=== PATIENT | male | born 1960 | race Caucasian/White ===

== ENCOUNTER 2024-12-30 07:46 | Observation (INO) ==
--- NOTE | 2024-12-30 08:09 | Emergency Department Note ---
Past Med/Surg History Problem List Social History Smoking Status: Current every day smoker Feels Safe at Home: Yes Allergies Allergies Allergy/AdvReac Type Severity Reaction Status Date / Time No Known Allergies Allergy Unverified 12/30/24 07:54 Results & Data (ED) Vital Signs Vital Signs - 24 hr 12/30/24 07:53 12/30/24 07:56 Temperature 36.8 C Temperature Source Oral Pulse Rate 86 Respiratory Rate 18 Respiratory Effort / Characteristics Non-Labored Respiratory Depth Normal Blood Pressure 97/63 L Blood Pressure Mean 74 Blood Pressure Position Sitting Pulse Oximetry 98 Oxygen Delivery Method Room Air Sepsis Recent Fever Within 48 Hours No Sepsis New/Unexplained Change in Mental Status No Sepsis Action Taken by Nursing No Action Required Discharge Plan Visit Data Chief Complaint: Arm Pain Stated Complaint: BROKEN R ARM ED Provider: German Farris ED Midlevel Provider: Charly Molina Forms Stand Alone Forms: [facility] Referrals Referrals: PCP,NO [Primary Care Provider] -
--- NOTE | 2024-12-30 08:11 | Emergency Department Note ---
History of Present Illness General Chief complaint: Arm Pain Stated complaint: BROKEN R ARM Time Seen by Provider: 12/30/24 07:59 History of Present Illness Maximum Pain Intensity: 10 This is a 64-year-old right-hand dominant male who presents to the emergency department via private vehicle with complaints of "dog bites, right wrist deformity". The patient is right-hand dominant. He believes his tetanus vaccine is up-to-date but is unsure. He notes about 45 minutes prior to arrival he got between his dogs that bit him on the right wrist, he then fell to the ground striking his right hand/wrist. He notes right wrist deformity and multiple bites to the right wrist region. He denies any known drug allergies. He believes he may have cancer lung/liver but is not entirely sure. He notes dogs vaccines are NOT up-to-date. Patient notes they are in house dogs, they do not stay outside. He denies concern for rabies. He notes dogs are still alive and can quarantine for 10 days. He denies striking the head or loss of consciousness. No headache or neck pain. No chest pain or abdominal pain. No back pain. He denies any bites beyond the upper extremities. He denies any other areas of pain beyond the right wrist. Patient denies any anticoagulant use. He notes he does not currently have a PCP. Home Medications Medication Instructions Recorded Confirmed Type albuterol sulfate 90 mcg/actuation 1 puff inhalation DIRECTED 12/30/24 12/30/24 History aerosol inhaler umeclidinium 62.5 mcg-vilanterol 1 inh inhalation DIRECTED 12/30/24 12/30/24 History 25 mcg/actuation powdr for inhalation (Anoro Ellipta) Allergies Allergy/AdvReac Type Severity Reaction Status Date / Time No Known Allergies Allergy Verified 12/30/24 12:10 Past Med/Surg History Problem List (Updated 12/30/24 @ 21:35 by Charly Molina PA-C) Transaminitis (Acute) Heavy alcohol consumption Dog bite, hand (Acute) History of opioid abuse COPD (chronic obstructive pulmonary disease) Open fracture of distal ulna (Acute) Open fracture of distal end of radius (Acute) Median nerve injury Medical History History of herniated intervertebral disc History of fracture of right ankle History of COPD Social History Smoking Status: Current every day smoker Tobacco Type: Cigarettes Second Hand Exposure: Yes; Do You Dip or Chew Tobacco: No; Tobacco Cessation Education Requested by Patient: No Hx Alcohol Use: Yes (reports past use of alcohol) Hx Substance Use: Yes (past history, no recent use) Last Used Substance: Unknown Last Used Substance Other:: patient states "years ago" use of opiates. no recent usage Preferred Language: Mohawk Communication Ability: Effective Instrumentation Engineer Required: Yes Beliefs That Will Affect Care: None Current Living Situation: Other Current Living Situation Comment: lives in house with dtr who works away, friends will be staying to help Other Information That Helps Us Care for You: No Feels Safe at Home: Yes Safety Concerns: Feels Safe At This Time Assistive Devices: Glasses Review of Systems A total of 10 systems reviewed and were otherwise negative Physical Exam Vital Signs Vital Signs - 24 hr 12/30/24 07:53 12/30/24 07:56 12/30/24 08:15 Temperature 36.8 C Temperature Source Oral Pulse Rate 86 Pulse Rate [Apical] Respiratory Rate 18 Respiratory Effort / Characteristics Non-Labored Respiratory Depth Normal Blood Pressure 97/63 L Blood Pressure [Right Arm] Blood Pressure Mean 74 Blood Pressure Mean [Right Arm] Blood Pressure Position Sitting Pulse Oximetry 98 96 Oxygen Delivery Method Room Air Room Air Sepsis Recent Fever Within 48 Hours No Sepsis New/Unexplained Change in Mental Status No Sepsis Action Taken by Nursing No Action Required 12/30/24 08:18 12/30/24 08:35 12/30/24 10:48 Temperature Temperature Source Pulse Rate 87 Pulse Rate [Apical] 87 90 Respiratory Rate 20 20 Respiratory Effort / Characteristics Non-Labored Respiratory Depth Normal Normal Blood Pressure Blood Pressure [Right Arm] 128/88 150/98 H Blood Pressure Mean Blood Pressure Mean [Right Arm] 101 115 Blood Pressure Position Pulse Oximetry 94 98 Oxygen Delivery Method Room Air Room Air Sepsis Recent Fever Within 48 Hours Sepsis New/Unexplained Change in Mental Status Sepsis Action Taken by Nursing VITAL SIGNS - Vital signs and nursing notes were reviewed. Stable and afebrile. GENERAL -64-year-old male appearing his stated age who is in no acute distress. Communicates well with provider and answers questions appropriately. SKIN -obvious deformity to the right wrist region with several open wounds/puncture wounds noted consistent with dog bites HEAD - NC/AT. EYES - PERRL with EOMI bilaterally. Sclera anicteric. No hyphema. No subconjunctival hemorrhage. NECK - Neck with FROM. No nuchal rigidity. LUNGS - Chest wall symmetric without accessory muscle use, intercostals retractions, or central cyanosis. Normal vesicular breath sounds CTA B/L. No wheezes, rales, or rhonchi appreciated. CARDIAC - RRR EXTREMITIES - No clubbing or peripheral cyanosis. Skin as above. Obvious deformity to the right wrist region with multiple open wounds/puncture wounds noted. +5/5 strength noted in UE/LE bilaterally. R radial pulse WNL. Right upper extremity appropriately warm and well-perfused. Cap refill of all digits of the right hand within normal limits NEUROLOGIC - Cranial nerves II through XII grossly intact. Sensory intact to light touch throughout the upper extremities without deficit. PSYCH -alert, oriented and pleasant on exam Course Administered Medications Lactated Ringer's (Lr) 1,000 mls @ 15 mls/hr IV .Q24H JEANNE Stop: 12/31/24 12:14 Last Infusion: 12/30/24 12:44 Dose: Infused Documented By: Admin: 12/30/24 12:14 Dose: 15 mls/hr Documented By: MARLENE Ampicillin Sodium/Sulbactam Sodium (Unasyn) 3,000 mg in 100 mls @ 200 mls/hr IV Q6H JEANNE Stop: 02/10/25 19:29 Last Infusion: 12/30/24 21:02 Dose: Infused Documented By: Admin: 12/30/24 20:23 Dose: 200 mls/hr Documented By: PARAG Nicotine (Nicotine 7 Mg/24 Hr Tdsy) 1 patch TD QAM JEANNE Stop: 01/29/25 19:59 Last Admin: 12/30/24 20:23 Dose: 1 patch Documented By: PARAG Discontinued Medications Albuterol (Albut/Ipratrop 3mg/0.5mg Neb 3 Ml Vial) 3 ml NEB NOW STA; Protocol Stop: 12/30/24 12:31 Last Admin: 12/30/24 18:06 Dose: Not Given Documented By: EMANUEL Diphtheria/Pertussis/Tetanus Vacc (Diphther/Tetan/Pertus Vaccine (Tdap, Adol/Adult) 0.5ml) 0.5 ml IM .ONCE ONE Stop: 12/30/24 08:27 Last Admin: 12/30/24 08:37 Dose: 0.5 ml Documented By: THEO Fentanyl Citrate (Fentanyl Citrate Pf 100 Mcg/2 Ml Vial) 50 mcg IV NOW STA Stop: 12/30/24 08:14 Last Admin: 12/30/24 08:27 Dose: 50 mcg Documented By: THEO Fentanyl Citrate (Fentanyl Citrate Pf 100 Mcg/2 Ml Vial) 25 mcg IV NOW STA Stop: 12/30/24 09:05 Last Admin: 12/30/24 09:12 Dose: 25 mcg Documented By: THEO Fentanyl Citrate (Fentanyl Citrate Pf 100 Mcg/2 Ml Vial) 25 mcg IV NOW STA Stop: 12/30/24 09:52 Last Admin: 12/30/24 10:05 Dose: 25 mcg Documented By: THEO Fentanyl Citrate (Fentanyl Citrate Pf 100 Mcg/2 Ml Vial) 25 mcg IV NOW STA Stop: 12/30/24 10:59 Last Admin: 12/30/24 11:06 Dose: 25 mcg Documented By: THEO Ampicillin Sodium/Sulbactam Sodium (Unasyn) 3,000 mg in 100 mls @ 200 mls/hr IV NOW STA Stop: 12/30/24 08:37 Last Infusion: 12/30/24 09:08 Dose: Infused Documented By: Admin: 12/30/24 08:26 Dose: 200 mls/hr Documented By: THEO Tranexamic Acid (Tranexamic Acid / 0.7% Nacl) 1,000 mg in 100 mls @ 600 mls/hr IV PREOP ONE Stop: 12/30/24 11:56 Last Infusion: 12/30/24 18:07 Dose: Infused Documented By: Admin: 12/30/24 13:25 Dose: 600 mls/hr Documented By: [id number] Ampicillin Sodium/Sulbactam Sodium (Unasyn) 3,000 mg in 100 mls @ 200 mls/hr IV Q6H JEANNE Stop: 02/10/25 14:29 Last Admin: 12/30/24 18:06 Dose: Not Given Documented By: EMANUEL Ondansetron HCl (Ondansetron Inj 2 Mg/Ml 2 Ml Vial) 4 mg IV NOW STA Stop: 12/30/24 08:14 Last Admin: 12/30/24 08:27 Dose: 4 mg Documented By: THEO Medical Decision Making Laboratory Data 12/30/24 08:07 12/30/24 08:07 Lab Results 12/30/24 12/30/24 12/30/24 Range/Units 08:07 09:07 09:32 WBC 5.28 (4.8-10.8) K/ul RBC 3.95 L (4.70-6.10) M/uL Hgb 12.5 L (14.0-18.0) g/dl Hct 37.6 L (42.0-52.0) % MCV 95.2 (80.0-100.0) fL MCH 31.6 (25.0-34.0) pg MCHC 33.2 (32.0-36.0) g/dL RDW Std Deviation 49.6 H (36.4-46.3) fL RDW Coeff of Surendra 14.1 (11.5-14.5) % Plt Count 88 L (130-400) K/uL MPV 13.0 H (9.4-12.4) fL Immature Gran % (Auto) 0.2 % Neut % (Auto) 50.5 % Lymph % (Auto) 32.4 % Vance % (Auto) 9.8 % Eos % (Auto) 6.3 % Baso % (Auto) 0.8 % Neut # (Auto) 2.67 (1.40-6.50) K/uL Lymph # (Auto) 1.71 (1.20-3.40) K/uL Vance # (Auto) 0.52 (0.11-0.59) K/uL Eos # (Auto) 0.33 (0.00-0.50) K/uL Baso # (Auto) 0.04 (0.00-0.20) K/uL Immature Gran # (Auto) 0.01 (0.01-0.20) K/uL Platelet Estimate Decreased L (Normal) PT 11.9 (9.0-12.0) Seconds INR 1.1 (0.9-1.1) APTT 27 (21-31) Seconds PTT Ratio 1.0 Sodium 137 (136-145) mmol/L Potassium 3.6 (3.5-5.1) mmol/L Chloride 103 (98-107) mmol/L Carbon Dioxide 23 (21-32) mmol/L Anion Gap 11 (3-11) BUN 11 (6-23) mg/dl Creatinine 0.73 (0.6-1.4) mg/dl Est Cr Clr Drug Dosing 77.2 ml/min eGFR 101.60 BUN/Creatinine Ratio 15.1 (10-20) Glucose 229 H (70-99(Fasting)) mg/dl Calcium 8.8 (8.6-10.3) mg/dl Total Bilirubin 0.7 (0.2-1.0) mg/dl AST 117 H (13-39) U/L ALT 74 H (7-52) U/L Alkaline Phosphatase 130 H (34-104) U/L Total Protein 7.2 (6.0-8.3) gm/dl Albumin 3.1 L (3.4-5.0) gm/dl Globulin 4.1 H (2.5-4.0) gm/dl Albumin/Globulin Ratio 0.8 L (0.9-2) Urine Color Brown Urine Appearance Cloudy A (Clear) Urine pH 6.0 (4.5-7.5) Ur Specific Sterling 1.025 (1.000-1.030) Urine Protein 2+ H (Negative) Urine Glucose (UA) Negative (Negative) Urine Ketones Negative (Negative) Urine Blood 3+ H (Negative) Urine Nitrite Negative (Negative) Urine Bilirubin Negative (Negative) Urine Urobilinogen Negative (Negative) Ur Leukocyte Esterase Negative (Negative) Urine RBC >20 H (0-2) /hpf Urine WBC 11-20 H (0-5) /hpf Ur Epithelial Cells 0-2 (0-2) /hpf Urine Bacteria None Seen (None Seen) Ethyl Alcohol mg/dL < 10.0 (<10.0) mg/dl Imaging Data Radiologist's Impression: Hand X-Ray 12/30/24 11:28 XR hand LT min 3V routine CLINICAL HISTORY: L hand fingers dog bites COMPARISON: None FINDINGS: Evaluation of the left fifth finger is mildly compromised given monitoring device. No acute fractures within the left hand are identified. There are no unexpected radiopaque foreign bodies. A few well-corticated ossicles along the ulnar styloid are chronic. 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 IMPRESSION: No acute fracture or dislocation within the left hand. ACT 112: Negative or not required by law. Electronically signed by: Waldo Grimes M.D. 12/30/2024 11:59 AM XR hand RT min 3V routine, XR wrist RT min 3V routine, XR forearm RT 2V HISTORY: 64 years-old Male R wrist deformity, dog bites, fall acute right wrist pain status post fall COMPARISON: Wrist deformity grafts of same day TECHNIQUE: 2 views of the right hand with 2 views of the right forearm and 3 views of the right wrist FINDINGS: HAND: Limited exam secondary to positioning. Multifocal osteoarthritis, moderate within the first carpometacarpal joint. No definite acute fracture or dislocation. WRIST: No acute carpal bone fracture or dislocation. FOREARM: There is an acute open fracture deformity involving the distal radius which demonstrates apex lateral angulation with and volar displacement of 2.5 cm. The radiocarpal articulation is preserved. The distal radius extends through the soft tissues. Additional acute, comminuted and displaced fracture of the distal ulna with fracture fragment displaced over 2 cm the adjacent ulnar tissues. The ulnar styloid is also fractured. There is moderate soft tissue swelling with a considerable amount of subcutaneous emphysema and deep tissue air. IMPRESSION: 1. Acute open fracture deformity of the distal forearm with comminuted, displaced and angulated fractures of the distal radius and ulna. 2. Preserved radiocarpal articulation. 3. No acute carpal or hand fractures identified. 4. Soft tissue swelling with subcutaneous emphysema. ACT 112: Negative or not required by law. The above report was generated using voice recognition software. It may contain grammatical, syntax or spelling errors. Electronically signed by: Dain Knox M.D. 12/30/2024 8:46 AM MDM Narrative Patient was seen and evaluated as above in room B09. Review was performed of triage nursing notes and vital signs. After obtaining a thorough history and physical examination the above work up was performed. Patient presents to us today for evaluation of multiple dog bites to the right wrist/upper extremity area with deformity to the right wrist. Patient notes that he was trying to separate his 2 pit bulls and in doing so sustained multiple bites and then also fell to the ground injuring his right wrist. He denies striking head or loss of consciousness. GCS 15. No headache or neck pain. No chest pain or abdominal pain. No back pain. No neurovascular deficits at this time. Options of care were discussed with the patient. IV access was immediately established. Tetanus vaccine was updated as it appeared to be out of date per review of the EMR/[facility] and patient was given prophylactic IV antibiotics noting concern for potential open fracture with dog bites. IV Unasyn was chosen for Pasteurella multocida coverage. Patient was medicated here with IV fentanyl for pain, Zofran for nausea. I did cleanse the wounds with sterile saline and wrapped them with sterile saline soaked sterile 4 x 4's followed by Lloyd. I also was able to identify some small wounds to the left hand/thumb region. Same type of dressings were applied. With the patient having a significantly displaced fracture that may be open, I did have staff page orthopedics. Labs reveal no leukocytosis. There is minor anemia with hemoglobin of 12.5. Platelet count is decreased. Coags are normal. No evidence of kidney failure. Mild transaminitis noted. Normal T. bili. Urine does reveal some protein, red blood cells white blood cells without bacteria. No signs of head trauma on examination. In fact, injuries appear to be isolated to the right hand/wrist region and left thumb. I also reviewed rabies with the patient. He denies any concern for rabies at this time. He notes that both of the dogs live with him and have been with him for some time now. There have been no changes in behavior. Patient notes the dogs live inside with him. Friend at bedside notes the dogs are at their baseline without signs of illness. They will quarantine and monitor the dogs x 10 days to ensure they are still alive. We will hold off on rabies series at this time. [phone] staff did call back, they will relay the information to Dr. Meehan [phone]-Dr. Meehan did call back. He recommended transfer. Splint in current position. We then began calling [facility] however I updated the patient on this recommendation and he refused [facility]. He specifically requested [facility]. [id number]-[facility] one call called back. They will connect with trauma. I spoke with with trauma at [facility]. They did note this being isolated, orthopedics would be primary service, therefore they recommend discussing with orthopedics at their facility. 1000- I spoke Dr. Aguirre, [facility] orthopedics. Recommends reduction, then they will call back with acceptance. [phone]- Dr. Meehan updated that receiving facility recommend reduction. He came to bedside. Ultimate plan was to take the patient to the OR. Please refer to the documentation regarding his stay. Patient did note numbness in the digits/hand but still able to appreciate light touch. Case was discussed with the attending physician. GCS: 15 In the evaluation and treatment of this patient the following differential diagnoses were entertained: Fracture, dislocation, subluxation, contusion, sprain, strain, among others. Impression & Plan Open fracture of distal end of radius, Transaminitis, Open fracture of distal ulna, Dog bite, hand Discharge Plan Visit Data Chief Complaint: Arm Pain Stated Complaint: BROKEN R ARM ED Provider: German Farris ED Midlevel Provider: Charly Molina Discharge Problem: Open fracture of distal end of radius, Transaminitis, Open fracture of distal ulna, Dog bite, hand Patient Disposition: Being Evaluated by Surgeon Condition: Good Discharge Instructions Interventions: ED Discharge Assessment Last Done: 12/30/24 11:40
--- NOTE | 2024-12-30 08:13 | Emergency Department Note ---
ED Visit Note ED Physician Supervisory Note & Attestation: I was consulted by the Advanced Practice Provider, Charly BARBER. I personally made/approved the management plan and take responsibility for the patient management. I performed a substantive portion of the visit. This includes the aspects of: Pit bull dog bite right wrist. Deformity. Occured just prior to arrival. Unknown tetanus vaccination status. Unknown rabies vaccination status of dogs. Patient without past medical history nor medications, though admits possible cancer. Evaluation: bedside evaluation by me. Ulnar dislocation with significant deformity right wrist. Multiple lacerations/puncture wounds surrounding the area. Patient is cachectic and chronically unwell appearing but denies any daily medications. Patient on my evaluation denies. He does still have blood flow to the hand. X-rays confirm significant fracture with displacement. After discussion with orthopedics here as well as at [facility] trauma center in [place]. After evaluation and discussion orthopedics here decided to take patient to the OR for further management. Imaging: X-ray of the right wrist as per my interpretation shows significant fracture of the ulnar and radius with displacement of the wrist. German Farris MD
[2024-12-30] MEDS: AMPICILLIN/SULBACTAM SOD 3,000 MG/100 ML BAG IV STA (08:26)
[2024-12-30] MEDS: ONDANSETRON INJ 2 MG/ML 2 ML VIAL IV STA (08:27)
[2024-12-30] MEDS: fentaNYL citrate PF 100 MCG/2 ML VIAL IV STA ×4 (08:27→11:06)
[2024-12-30] MEDS: DIPHTHER/TETAN/PERTUS Vaccine (Tdap, Adol/Adult) 0.5mL IM ONE (08:37)
[2024-12-30 08:43] LABS: Hematocrit (blood only) 37.6 % (42.0-52.0); Hemoglobin 12.5 g/dl (14.0-18.0); Mean Corpuscular Hemoglobin 31.6 pg (25.0-34.0); Mean Corpuscular Hgb Conc 33.2 g/dL (32.0-36.0); Mean Corpuscular Volume 95.2 fL (80.0-100.0); RDW Coefficient of Variation 14.1 % (11.5-14.5); RDW Standard Deviation 49.6 fL (36.4-46.3); Red Blood Count 3.95 M/uL (4.70-6.10); White Blood Count 5.28 K/ul (4.8-10.8)
--- NOTE | 2024-12-30 08:49 | XRay Report ---
XR hand RT min 3V routine, XR wrist RT min 3V routine, XR forearm RT 2V HISTORY: 64 years-old Male R wrist deformity, dog bites, fall acute right wrist pain status post fal l COMPARISON: Wrist deformity grafts of same day TECHNIQUE: 2 views of the right hand with 2 views of the right forearm and 3 views of the right wrist FINDINGS: HAND: Limited exam secondary to positioning. Multifocal osteoarthritis, moderate within the first car pometacarpal joint. No definite acute fracture or dislocation. WRIST: No acute carpal bone fracture or dislocation. FOREARM: There is an acute open fracture deformity involving the distal radius which demonstrates ape x lateral angulation with and volar displacement of 2.5 cm. The radiocarpal articulation is preserved . The distal radius extends through the soft tissues. Additional acute, comminuted and displaced frac ture of the distal ulna with fracture fragment displaced over 2 cm the adjacent ulnar tissues. The ul david styloid is also fractured. There is moderate soft tissue swelling with a considerable amount of s ubcutaneous emphysema and deep tissue air. IMPRESSION: 1. Acute open fracture deformity of the distal forearm with comminuted, displaced and angulated fract ures of the distal radius and ulna. 2. Preserved radiocarpal articulation. 3. No acute carpal or hand fractures identified. 4. Soft tissue swelling with subcutaneous emphysema. ACT 112: Negative or not required by law. The above report was generated using voice recognition software. It may contain grammatical, syntax o r spelling errors. Electronically signed by: Dain Knox M.D. 12/30/2024 8:46 AM
[2024-12-30 08:52] LABS: Albumin Globulin Ratio 0.8 (0.9-2); Albumin Level 3.1 gm/dl (3.4-5.0); BUN Creatinine Ratio 15.1 (10-20); Bilirubin,Total 0.7 mg/dl (0.2-1.0); Calcium 8.8 mg/dl (8.6-10.3); Creatinine Clr Calc Pharmacy 77.2 ml/min; Globulin 4.1 gm/dl (2.5-4.0); Potassium 3.6 mmol/L (3.5-5.1); Total Protein 7.2 gm/dl (6.0-8.3)
[2024-12-30 08:54] LABS: Basophils # (auto) 0.04 K/uL (0.00-0.20); Basophils % (auto) 0.8 %; Eosinophils # (auto) 0.33 K/uL (0.00-0.50); Eosinophils % (auto) 6.3 %; Immature Granulocytes # (auto) 0.01 K/uL (0.01-0.20); Immature Granulocytes % (auto) 0.2 %; Lymphocytes # (auto) 1.71 K/uL (1.20-3.40); Lymphocytes % (auto) 32.4 %; Monocytes # (auto) 0.52 K/uL (0.11-0.59); Monocytes % (auto) 9.8 %; Neutrophils # (auto) 2.67 K/uL (1.40-6.50); Neutrophils % (auto) 50.5 %; Platelet Count 88 K/uL (130-400); Platelet Estimate Decreased (Normal)
[2024-12-30 09:01] LABS: INR 1.1 (0.9-1.1); Partial Thromboplastin Time 27 Seconds (21-31); Prothrombin Time 11.9 Seconds (9.0-12.0)
--- NOTE | 2024-12-30 11:27 | Orthopedic Consultation ---
Date of Consultation December 30, 2024 Assessment & Plan (1) Median nerve injury: I discussed with the patient that his median nerve is injured, this is likely a stretch injury given the deformity at the fracture site, however it is possible he could have additional injury to the nerve as well. I discussed the unstable nature of his fractures as well as the complex nature of the distal ulna in particular. When I initially spoke to the emergency room about this patient I recommended transfer to a facility with a hand surgeon as I am not hand surgeon trained due to the complex nature of this injury. Patient declined transfer to [facility]. He requested [facility]. I talked to the orthopedic trauma surgeon at [facility] who is not a hand surgeon. He did not feel that transfer was appropriate and thought the patient should have surgery done here. I discussed this with the patient. I told him I could take him to the operating room and treat his distal radius fracture and washout his wounds. However there was a good chance he would need to have a secondary surgery perfor med by hand surgeon to deal with his distal ulna fracture. I offered him and the other alternative of us trying to continue to get him transferred to a facility with a hand surgeon. His preference was to have surgery here and deal with the consequences thereafter. Informed consent was signed by the patient. The surgical sites were marked. Will plan on washing out his left hand dog bite wounds at the same time. Will proceed to the operating room as soon as the room is available. He did have some tea this morning however given the open fracture and nerve injury it is an urgent/emergent case. He will need to stay in the hospital after surgery for antibiotics for minimum 24 hours. (2) Open fracture of distal end of radius: (3) Open fracture of distal ulna: (4) COPD (chronic obstructive pulmonary disease): (5) History of opioid abuse: (6) Dog bite, hand: History of Present Illness History of Present Illness Rk is a [id number] 64-year-old male who presented to the emergency department this morning. he says he was at home and his 2 pit bulls were fighting in his yard. He went to break up the fight and one of the dogs got his right arm in his mouth. He said he felt his wrist snapped when the dog had a hold of his arm. He also got bitten on his left hand. No deformity in the left hand. In the emergency room he received tetanus as well as antibiotics. X-rays were obtained. Orthopedics was consulted for evaluation and management. Patient reports that he has COPD and is smoked for many years. He says he has a lung nodule that is currently getting worked up. He denies any previous injuries to the right hand. He says he is retired. He reports that he has a numb and tingly feeling in his thumb index and long fingers. He says he used to take 6 Percocet per day but he says he is weaned off of those. Allergies Allergy/AdvReac Type Severity Reaction Status Date / Time No Known Allergies Allergy Unverified 12/30/24 07:54 Home Medications Medication Instructions Recorded Confirmed Type albuterol sulfate 90 mcg/actuation 1 puff inhalation DIRECTED 12/30/24 12/30/24 History aerosol inhaler umeclidinium 62.5 mcg-vilanterol 1 inh inhalation DIRECTED 12/30/24 12/30/24 History 25 mcg/actuation powdr for inhalation (Anoro Ellipta) Patient History Social History Smoking Status: Current every day smoker Feels Safe at Home: Yes Physical Exam Physical Exam: On exam he is resting comfortably in bed in no acute distress. Right upper extremity exam reveals deformity at the distal forearm with the hand and wrist going ulnar relative to the forearm. He has an a laceration over the volar aspect of the distal forearm measures approximately 4 cm in width. No obvious tendon lacerations seen on initial inspection of the wound. Did not see any cut nerve endings either. He has another laceration over the ulnar side of the distal forearm about 2 cm in length. Similarly quick inspection did not reveal any obvious tendons in the wound. Tendon exam reveals the patient to be able to fire his EPL and FPL. He fires his FDS and FDP to the index through pinky fingers. Unable to assess wrist extensors and wrist flexors secondary to the pain and deformity. He has decreased sensation to moving light touch in the median nerve distribution. Intact sensation to moving light touch in the ulnar and radial nerve distributions. His fingers feel well-perfused. Unable to assess pulses given the location of the fracture and deformity. Left hand shows the patient to have -4 small puncture wounds from the dog's teeth 3 on the left thumb and 1 at the tip of the fourth/ring finger. These are each less than 8 mm in maximum length. They are somewhat deep however due to the puncture nature of the injury. He had intact tendon function to the thumb and the ring finger with no gross deformity. X-rays are pending at the time of the evaluation of the left hand. Results & Data Vital Signs (Past 12 Hours) Vital Signs Temp Pulse Pulse Resp BP BP Pulse Ox 12/30/24 10:48 90 20 150/98 H 98 12/30/24 08:35 87 12/30/24 08:18 87 20 128/88 94 12/30/24 08:15 96 12/30/24 07:53 98.2 F 86 18 97/63 L 98 O2 Del Method 12/30/24 10:48 Room Air 12/30/24 08:35 12/30/24 08:18 Room Air 12/30/24 08:15 Room Air 12/30/24 07:53 Room Air Diagnostic Findings X-rays of the wrist and forearm are reviewed. These show a displaced extra- articular distal radius fracture with gas in the soft tissues consistent with an open injury. Ulna fracture appears to be a coronal split with the DRUJ portion of the distal ulna still attached to the radius fragment. The ulna fracture is comminuted.
[2024-12-30 11:44] LABS: Appearance Urine Cloudy (Clear); Bilirubin Urine Negative (Negative); Blood Urine 3+ (Negative); Color Urine Brown; Glucose Urine UA Negative (Negative); Ketones Urine Negative (Negative); Leukocyte Esterase Urine Negative (Negative); Nitrite Urine Negative (Negative); Protein Urine 2+ (Negative); Specific Gravity Urine 1.025 (1.000-1.030); Urobilinogen Urine Negative (Negative)
--- NOTE | 2024-12-30 11:51 | History & Physical Report ---
Date of Service December 30, 2024 Assessment & Plan (1) Dog bite, hand: (2) History of opioid abuse: (3) COPD (chronic obstructive pulmonary disease): (4) Open fracture of distal ulna: (5) Open fracture of distal end of radius: (6) Median nerve injury: (7) Heavy alcohol consumption: (8) Transaminitis: Plan 64 yo male PMHx COPD, opioid use disorder admitted with complex open fracture of the R wrist after trying to break up a dog fight and being bitten. #Dog Bite, Open Fracture of Radius and Ulna To OR for ORIF, likely will need second procedure at tertiary care center w/ hand surgeon Given Unasyn - continue Rec'd tetanus booster Pain management as needed #Heavy EtOH Use This is likely the culprit for transaminitis and thrombocytopenia AWSS at risk protocol ordered Trend labs Risk reduction vs EtOH treatment conversation needed prior to dc #Nicotine Use Offer nicotine replacement #COPD Continue Anoro and PRN albuterol FENGI: NPO for surgery, regular diet post-op Code status: full code DVT prophylaxis: SCDs Isolation: none Disposition: med/surg History of Present Illness Chief Complaint: 64 yo male PMHx COPD, opioid use disorder admitted with complex open fracture of the R wrist after trying to break up a dog fight and being bitten. Was also bitten on left hand without deformity. Is a group home smoker, history of taking 6 Percocet per day but weaned himself off of this. Admits to heavy EtOH use. States pain is reasonably controlled. Initially transfer was recommended but patient declined. Seen by ortho and readied for OR. ED Course: R hand/arm XRs reveal comminuted, displaced, angulated fractures of distal radius and ulna Labs reveal: transaminitis, thrombocytopenia, EtOH negative Tetanus booster given Rec'd Unasyn Primary Care Provider: NO PCP Allergies Allergy/AdvReac Type Severity Reaction Status Date / Time No Known Allergies Allergy Verified 12/30/24 12:10 Home Medications Medication Instructions Recorded Confirmed Type albuterol sulfate 90 mcg/actuation 1 puff inhalation DIRECTED 12/30/24 12/30/24 History aerosol inhaler umeclidinium 62.5 mcg-vilanterol 1 inh inhalation DIRECTED 12/30/24 12/30/24 History 25 mcg/actuation powdr for inhalation (Anoro Ellipta) Past Med/Surg History Problem List (Updated 12/30/24 @ 13:11 by Tarun Szymanski DO) Transaminitis Heavy alcohol consumption Dog bite, hand History of opioid abuse COPD (chronic obstructive pulmonary disease) Open fracture of distal ulna Open fracture of distal end of radius Median nerve injury Medical History History of herniated intervertebral disc History of fracture of right ankle History of COPD Social History Smoking Status: Current every day smoker Feels Safe at Home: Yes Review of Systems Review of Systems: reviewed, per HPI Physical Exam Physical Exam: Constitutional: gaunt, no acute distress HEENT: NCAT, no conjunctival injection CV: regular rhythm, extremities well-perfused, no LE edema Resp: decreased air movement, no significant wheeze, rales GI: nondistended MSK: no gross deformities appreciated Skin: warm, dry, no rash appreciated Neuro: alert, oriented, no focal neurologic deficit appreciated Results & Data Results & Data Vital Signs (Past 12 Hours) Vital Signs Temp Pulse Pulse Resp BP BP Pulse Ox 12/30/24 10:48 90 20 150/98 H 98 12/30/24 08:35 87 12/30/24 08:18 87 20 128/88 94 12/30/24 08:15 96 12/30/24 07:53 36.8 C 86 18 97/63 L 98 O2 Del Method 12/30/24 10:48 Room Air 12/30/24 08:35 12/30/24 08:18 Room Air 12/30/24 08:15 Room Air 12/30/24 07:53 Room Air Supervising Physician Co-Signing Physician Notes ATTESTATION I also saw the patient and confirmed capps portions of the history and exam. I agree with the impression and plan in the resident documentation, and as summarized below. [id number] 64-year-old male with acute open fracture with deformity of the distal right forearm with comminuted, displaced and angulated fractures of the distal radius and ulna suffered this morning while he was trying to separate his two pit bulls who were fighting. Also with open wound of left hand, but negative imaging. In the emergency room he received tetanus as well as antibiotics. Orthopedics was consulted for evaluation and management, and the patient is going to the OR this morning. Transfer to another facility was initially recommended, but the patient declined (see orthopedic consultation). Reported history of COPD and opioid use, although he weaned himself off previously. No PCP; no records available in EMR. EXAM 153/93, HR 98 Pain seems controlled at the time of my visit CV appropriately tachycardic, but regular Lungs decreased, prolonged exp phase Obvious deformity right wrist; left hand bandaged DATA Labs HgB 12.5 plt 88 glucose 229 AST 117, ALT 74 Imaging As noted above Micro urine culture pending IMPRESSION & PLAN Right wrist fracture Dog Bites, multiple Tobacco Abuse ETOH Abuse COPD Thrombocytopenia Elevated LFTS History of Opioid dependence Hyperglycemia Patient being readied for the OR Patient may need transfer for additional surgery Pain controlled at present time Suspect low platelet count and elevated LFTs secondary to ETOH, will discuss with patient post op Monitor for withdrawal; note negative ETOH on admission Encourage tobacco cessation Check A1c Additional per resident documentation Resident Activity Tracking Resident Involvement: Resident Care Provided Care Provided: Adult Hospital Medicine
[2024-12-30 11:55] LABS: Bacteria Urine None Seen (None Seen); Epithelial Cell Urine 0-2 /hpf (0-2); RBC Urine >20 /hpf (0-2)
--- NOTE | 2024-12-30 12:00 | XRay Report ---
XR hand LT min 3V routine CLINICAL HISTORY: L hand fingers dog bites COMPARISON: None FINDINGS: Evaluation of the left fifth finger is mildly compromised given monitoring device. No acut e fractures within the left hand are identified. There are no unexpected radiopaque foreign bodies. A few well-corticated ossicles along the ulnar styloid are chronic. 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 IMPRESSION: No acute fracture or dislocation within the left hand. ACT 112: Negative or not required by law. Electronically signed by: Waldo Grimes M.D. 12/30/2024 11:59 AM
[2024-12-30] MEDS: LACTATED RINGER'S 1,000 ML IV SCH (12:14)
[2024-12-30] MEDS ORDERED: fentaNYL citrate PF 100 MCG/2 ML VIAL ONE (12:19)
[2024-12-30] MEDS ORDERED: PROPOFOL IV EMULSION 10 MG/ML 20 ML VIAL IV ONE (12:19)
[2024-12-30] MEDS ORDERED: HYDROmorphone INJ 2 MG/ML SYR/VIAL IV PRN (12:29)
[2024-12-30] MEDS ORDERED: ONDANSETRON INJ 2 MG/ML 2 ML VIAL IV PRN ×2 (12:29→17:58)
[2024-12-30] MEDS ORDERED: ePHEDrine sulfate 50 MG/ML AMP IV PRN (12:29)
[2024-12-30] MEDS ORDERED: ATROPINE SULFATE 0.1 MG/ML 10ML SYR IV PRN (12:29)
[2024-12-30] MEDS ORDERED: fentaNYL citrate PF 100 MCG/2 ML VIAL IV PRN (12:29)
--- NOTE | 2024-12-30 12:33 | Anesthesiology Consultation ---
Date of Service December 30, 2024 Assessment & Plan ASA ASA3 Proposed Anesthesia Anesthesia Type: General Risk / Benefits Reviewed With: PT / POA / Parent / Guardian, Accepts Plan and Informed Consent Obtained History Surgery Operation Date: 12/30/24 11:10 Proposed Procedures p Right Distal Radius Fracture Open Reduction Internal Fixation and - Huy Meehan MD s Incision and Drainage Distal Radius - Huy Meehan MD Height/Weight Height: 5 ft 4 in Weight: 53.4 kg Allergies Allergy/AdvReac Type Severity Reaction Status Date / Time No Known Allergies Allergy Verified 12/30/24 12:10 Medications Home Medications Medication Instructions Recorded Confirmed Last Taken albuterol sulfate 90 mcg/actuation 1 puff inhalation DIRECTED 12/30/24 12/30/24 Unknown aerosol inhaler umeclidinium 62.5 mcg-vilanterol 1 inh inhalation DIRECTED 12/30/24 12/30/24 Unknown 25 mcg/actuation powdr for inhalation (Anoro Ellipta) Active Medications Generic Name Dose Route Start Last Admin Trade Name Wallaceq PRN Reason Stop Dose Admin Lactated Ringer's 1,000 mls @ 15 mls/hr 12/30/24 12:15 12/30/24 12:14 Lr IV 12/31/24 12:14 15 mls/hr .Q24H JEANNE Administration NPO Date Last Intake of Fluids: 12/30/24 Time Last Intake of Fluids: 07:30 Last Intake of Fluids Comment: "tea with sugar" Date Last Intake of Solids: 12/30/24 Time Last Intake of Solids: 03:00 Last Intake of Solids Comment: "bagel and cream cheese" Past Medical History Medical History History of herniated intervertebral disc History of fracture of right ankle History of COPD Exercise / Class Metabolic Activity II 4-5 Yardwork/Stairs/Walk up hill Past Anesthesia History No Hx of Anesthesia Complications and No Family Hx of Anesthesia Complications History of PONV No Hx of PONV and No Hx of Motion Sickness Social History Smoking Status: Current every day smoker Review of Systems denies fever/cough/ colds/ chest pain/ SOB/ FADI denies FADI Physical Exam Vital Signs Last Vital Signs Temp 36.8 C 12/30/24 12:04 Pulse 98 H 12/30/24 12:04 Resp 20 12/30/24 12:04 BP 159/93 H 12/30/24 12:04 Pulse Ox 96 12/30/24 12:04 O2 Del Method Room Air 12/30/24 12:04 ENMT Mouth: no TMJ abnormality and no dentition abnormality Thyromental Distance: > or= 3.5 Finger Breadths Mallampati Class: II Neck neck extension not limited Respiratory normal respiratory effort; no respiratory distress Auscultation: lungs clear to auscultation bilaterally (prolonged exhalation) Cardiovascular Rate/Rhythm: regular rate and regular rhythm Neurologic moves all extremities Psychiatric Orientation: alert and oriented x 3 Testing Laboratory Results 12/30/24 08:07 12/30/24 08:07 PT 11.9 Seconds (9.0-12.0) 12/30/24 08:07 INR 1.1 (0.9-1.1) 12/30/24 08:07 APTT 27 Seconds (21-31) 12/30/24 08:07 Urine Color Brown 12/30/24 09:32 Urine Appearance Cloudy (Clear) A 12/30/24 09:32 Urine pH 6.0 (4.5-7.5) 12/30/24 09:32 Ur Specific [place] 1.025 (1.000-1.030) 12/30/24 09:32 Urine Protein 2+ (Negative) H 12/30/24 09:32 Urine Glucose (UA) Negative (Negative) 12/30/24 09:32 Urine Ketones Negative (Negative) 12/30/24 09:32 Urine Nitrite Negative (Negative) 12/30/24 09:32 Ur Leukocyte Esterase Negative (Negative) 12/30/24 09:32 Urine RBC >20 /hpf (0-2) H 12/30/24 09:32 Urine WBC 11-20 /hpf (0-5) H 12/30/24 09:32 Ur Epithelial Cells 0-2 /hpf (0-2) 12/30/24 09:32
[2024-12-30] MEDS ORDERED: HYDROmorphone INJ 2 MG/ML SYR/VIAL ONE (12:58)
[2024-12-30] MEDS ORDERED: DEXAMETHASONE SOD INJ 4 MG/ML VIAL ONE (13:00)
[2024-12-30] MEDS ORDERED: ONDANSETRON INJ 2 MG/ML 2 ML VIAL ONE ×2 (13:00→15:39)
[2024-12-30] MEDS ORDERED: LORazepam 2 MG/1 ML VIAL IV PRN (13:09)
[2024-12-30] MEDS ORDERED: TRANEXAMIC ACID / 0.7% NACL 1000MG/100ML BAG IV ONE (13:13)
[2024-12-30] MEDS: TRANEXAMIC ACID / 0.7% NACL 1,000 MG/100 ML BAG IV ONE (13:25)
[2024-12-30] MEDS ORDERED: KETOROLAC 30 MG/ML VIAL ONE (14:13)
[2024-12-30] MEDS ORDERED: SUGAMMADEX SODIUM 200 MG/2 ML VIAL IV ONE (14:13)
--- NOTE | 2024-12-30 16:55 | Operative Report ---
Post Operative Report Pre & Post Diagnosis Pre & Post Diagnosis Operation Date: 12/30/24 11:10 Preoperative diagnosis: Dog bite to right hand resulting in right open distal radius fracture, right open distal ulna fracture, right median nerve injury, and dog bite to left hand causing multiple puncture wounds Postoperative diagnosis: Dog bite to right hand resulting in right open distal radius fracture, right open distal ulna fracture, right median nerve injury, and dog bite to left hand causing multiple puncture wounds I identified the patient and participated in the time-out.: Yes Procedure Procedure Operation Date: 12/30/24 11:10 1. Irrigation and debridement right open distal radius fracture and right open ulna fracture to bone 2. Open reduction internal fixation right distal radius fracture 3. Open reduction internal fixation right distal ulna fracture 4. Irrigation and debridement left hand dog bite puncture wounds to subcutaneous fat and primary closure Surgeon Huy Meehan MD Central Supply Technician Supervisor Deanna Muniz PA-C Estimated Blood Loss 25 Findings Consistent with Post-Op Diagnosis Specimens None Description of Procedure I was present for the entire case. I assisted with positioning, prepping, draping, retraction, suctioning, irrigation, wound closure, dressing and splint application. Please refer to Dr. Meehan's procedure note for full details. I attest to the content of the Intraoperative Record and any orders documented therein. Any exceptions are noted below.
--- NOTE | 2024-12-30 17:01 | Operative Report ---
Post Operative Report Pre & Post Diagnosis Operation Date: 12/30/24 11:10 Preoperative diagnosis: Dog bite to right hand resulting in right open distal radius fracture, right open distal ulna fracture, right median nerve injury, and dog bite to left hand causing multiple puncture wounds Postoperative diagnosis: Dog bite to right hand resulting in right open distal radius fracture, right open distal ulna fracture, right median nerve injury, and dog bite to left hand causing multiple puncture wounds I identified the patient and participated in the time-out.: Yes Procedure Operation Date: 12/30/24 11:10 1. Irrigation and debridement right open distal radius fracture and right open ulna fracture to bone 2. Open reduction internal fixation right distal radius fracture 3. Open reduction internal fixation right distal ulna fracture 4. Irrigation and debridement left hand dog bite puncture wounds to subcutaneous fat and primary closure Surgeon Huy Meehan MD Packing Inspector Sandro Muniz PA-C and Kary Glez Estimated Blood Loss 25 Findings Consistent with Post-Op Diagnosis Specimens None Anesthesia Type General Complications none Disposition Disposition: Recovery Room Indications 64-year-old male, was at home this morning when his 2 pit bulls got in a fight. He attempted to break up the fight when one of the dogs grabbed his right arm by the wrist and began shaking it violently. He also was bitten on his left hand at the time. He noticed immediate onset of deformity in his right wrist. He presented to the emergency room where x-rays were obtained demonstrating an open displaced right distal radius fracture, and an open, displaced, comminuted distal ulna fracture. I saw and examined the patient in the emergency room. He was noted to have decreased sensation to moving light touch in the median nerve distribution, As well as a sensation of numbness in the thumb index and long fingers consistent with a median nerve injury. I had a long discussion with the patient about the complex nature of his injury. I actually recommended transfer to a facility with a hand surgeon. The patient declined to transfer to [facility]. We then attempted transport him to [facility], however the trauma surgeon I spoke with did not accept the transfer. I had a discussion with the patient about his diagnosis and treatment options. These were to proceed with a closed reduction in the emergency room while we continue to try to find a facility with a hand surgeon that would accept him versus an open reduction internal fixation by myself with the understanding that he may need hand surgeon to get involved with his care later on. Patient desired to proceed with surgery by myself today. I had a long discussion with him about the risks and benefits of surgery, alternatives to surgery, and expected outcomes. All questions were answered. Informed consent was signed. Description of Procedure Patient was identified in the ER where his surgical sites were marked. He was then brought back to the operating room where he moved onto the operating room table and general anesthesia was administered. All bony prominences were padded. Perioperative antibiotics of Unasyn had already been administered in the emergency room. He was prepped and draped in usual sterile fashion. Prior to incision a multidisciplinary timeout was called. All in the room in agreement. I began with the right arm. Limb was exsanguinated with an Esmarch bandage. Tourniquet was inflated to 250 mmHg. There was a small venous bleeder that was electrocoagulated at the transverse incision on the volar aspect of the wrist that was approximately 4 cm in length. I then extended this incision proximally for a length of approximately 8 cm starting at the distal radial aspect of the transverse incision and moving proximally. I dissected down through subcutaneous tissues to the level of the fascia. The skin flap was then sutured back with a nylon suture. The wound was explored. The fracture distal radius sat in the wound. Brachial radialis and then traumatically amputated at the level of the fracture and was visible along the radial aspect of the bone. The radial artery and associated vein branches were draped over the top of the bone. Cystoscopy tubing was used to irrigate out the wound. I then gently curetted the end of the distal radius which was not showing any gross contamination. On ce this was complete I then incised the fascia overlying the FCR tendon. This was retracted ulnarly. I then incised the subs sheath of the fascia. The pronator quadratus was then taken from radial to ulnar to expose the shaft of the distal radius on the proximal fragment. Then, taking great care to protect the radial artery I was able to reduce the distal radius fracture to the distal fragment. A K wire was driven through the radial styloid into the proximal fragment to hold the reduction. There was not really any pronator quadratus on the distal fragment and it was the volar capsular ligaments that were left so I did not take anything off of the distal fragment bone. Instead I brought up the Synthes 4-hole variable angle locking plate of the standard width. This was applied to the bone and pinned in position. Fluoroscopy was used to optimize the position of the plate on the bone. Once this was confirmed I placed 2 proximal 2.4 mm cortical screws. Next, I elected to place some lag screws across the fracture through the locking holes but using a cortical screw. I drilled and measured for these. The these were on the most proximal screw holes of the distal locking holes. Screws were placed without difficulty. I got good fixation of the far cortex which I was happy with. This compressed the plate nicely to the bone. I then placed 4 locking screws along the most distal holes taking great care to ensure the screws were not penetrating the far cortex. The 2 remaining proximal holes were then filled with 2.4 mm locking screws. Fluoroscopy was used to check the position of the plate and the screw lengths as well as the reduction of the radius which I was happy with. At this point the tourniquet was let down and meticulous hemostasis was ensured in the distal radius incision. The wound was irrigated out with copious amounts normal saline. I then turned my attention toward the distal ulna. After the tourniquet had been down for approximately 10 minutes, the limb was reexsanguinated and the tourniquet was reinflated. The ulnar incision was approximately 2-1/2 cm in length, oblique, located directly over the fracture site. I extended this proximally approximately 4 cm and distally approximately 2 cm. Subcutaneous border the ulna was exposed proximally. Distally the ulnar head was comminuted. The comminuted fracture site was opened up. Small pieces of bone that were likely compressed by the dog's teeth were in danger of being comminuted and nonviable, therefore these were removed. The fracture site was irrigated out with copious amounts normal saline. I was able to achieve a provisional reduction using K wires of the distal ulnar fracture. There was a decent sized cortical piece located dorsal ulnarly that I felt like I could compress with a plate. Given that I already had the wound exposed I felt it was in the patient's best interest that I attempt to fixate this fragment with the plate. A 2.0 mm mini frag straight plate was opened up. This was secured to the bone working around the 2 K wires using cortical screws proximally in order to pull the plate to the bone and compressed the distal fragment. A total of 4 screws were placed proximal to the fracture. For fear of comminuted in the fracture I felt like I could only get 1 screw into the distal fracture fragment. I elected to place a locking screw for maximal fixation. This was drilled under fluoroscopic guidance to ensure the screw did not penetrate the distal radial ulnar joint. Screw was placed without difficulty. Final fluoroscopic images demonstrated the ulna fracture to be in acceptable position and the hardware was in a good position as well. Screw lengths were appropriate. At this point the ulnar incision was irrigated with copious amounts normal saline as was the distal radius incision. I closed the ulnar incision first using nylon sutures in interrupted vertical mattress fashion. I then turned my attention to the radius incision. There was significant amount of tension on the skin due to swelling in his forearm. Therefore I placed retention sutures using a near far far near 2-0 Prolene in interrupted fashion. 3-0 nylon sutures were placed in between the Prolene sutures for additional closure of the wound. Once this was complete the wound was dressed using Xeroform 4 x 4's and cast padding. He was placed into a sugar-tong plaster slab splint with the wrist held in neutral rotation crossing the elbow. Drapes were then taken down on the right arm. We then turned our attention toward the left hand. Operating room table was moved in the operating room to allow exposure of the left hand. The hand was prepped and draped using sterile technique. Patient had 3 small puncture wounds 2 in his left thumb and 1 in the left ring finger. These were irrigated out with copious amounts normal saline. The puncture wounds did go through the skin into the subcutaneous layer. There was no gross contamination. Nylon sutures were used in interrupted fashion to close the 3 wounds with a total of 5 sutures placed. Sterile dressing was applied. Patient was then awoke from anesthesia and transferred to cover room in stable condition. Postoperative course: Patient will be admitted to the floor overnight for IV antibiotics and pain control and monitoring. He will be on aspirin for DVT prophylaxis. He will elevate his arm. He can begin immediate finger range of motion exercises starting tomorrow for both hands. Plan on having him return to clinic 2 weeks from now for suture removal and transition to a short arm fiberglass cast on the right arm. I attest to the content of the Intraoperative Record and any orders documented therein. Any exceptions are noted below.
--- NOTE | 2024-12-30 17:24 | Anesthesiology Progress Note ---
Date of Service December 30, 2024 Anesthesia Post Procedure Vital Signs Vital Signs: Temp Pulse Pulse Pulse Resp BP BP 12/30/24 17:20 36.4 C L 75 12 138/87 12/30/24 17:10 74 16 141/90 H 12/30/24 17:00 71 22 154/95 H 12/30/24 16:50 36 C L 72 16 152/98 H 12/30/24 12:35 93 H 16 12/30/24 12:04 36.8 C 98 H 20 159/93 H 12/30/24 10:48 90 20 12/30/24 08:35 87 12/30/24 08:18 87 20 12/30/24 08:15 12/30/24 07:53 36.8 C 86 18 97/63 L BP Pulse Ox O2 Del Method O2 Flow Rate 12/30/24 17:20 94 Room Air 12/30/24 17:10 95 Room Air 12/30/24 17:00 100 Oxymask 4 12/30/24 16:50 100 Oxymask 6 12/30/24 12:35 92 Room Air 12/30/24 12:04 96 Room Air 12/30/24 10:48 150/98 H 98 Room Air 12/30/24 08:35 12/30/24 08:18 128/88 94 Room Air 12/30/24 08:15 96 Room Air 12/30/24 07:53 98 Room Air Pain Intensity Right Arm: Pain Intensity: 10 Transfer of Care Handoff Completed per policy Notes Mental Status: alert / awake / arousable Patient Amnestic to Procedure: Yes Nausea / Vomiting: adequately controlled Pain: adequately controlled Airway Patency, RR, SpO2: stable & adequate BP & HR: stable & adequate Hydration State: stable & adequate Anesthetic Complications: no major complications apparent and Pt Satisfied with anesthetic care
[2024-12-30] MEDS ORDERED: ALBUTEROL HFA 8 GM INHALER INH SCH (17:58)
[2024-12-30] MEDS ORDERED: POLYETHYLENE (MIRALAX) 17 GM PACK PO PRN (17:58)
[2024-12-30] MEDS ORDERED: ALUMINUM/MAGNESIUM SUSP 30 ML UDC PO PRN (17:58)
[2024-12-30] MEDS ORDERED: MELATONIN 3 MG TAB PO PRN (17:58)
[2024-12-30] MEDS ORDERED: MAGNESIUM HYDROXIDE SUSP 30 ML UDC PO PRN (17:58)
[2024-12-30] MEDS ORDERED: ACETAMINOPHEN 500 MG TAB PO PRN (17:58)
[2024-12-30] MEDS: ALBUT/IPRATROP 3MG/0.5MG NEB 3 ML VIAL NEB STA (18:06)
[2024-12-30] MEDS: AMPICILLIN/SULBACTAM SOD 3,000 MG/100 ML BAG IV SCH ×2 (18:06→20:23)
[2024-12-30] MEDS ORDERED: ALBUTEROL HFA 8 GM INHALER INH PRN (19:20)
--- OUTSIDE RECORDS SUMMARY | 2024-12-30 19:33 | External Medical Summary ---
Author Name Unknown Address Unknown Organization [id number] [address] [place] [address] Laboratory Report Ordering Provider Test Date Status DOMINIC ALAS 12/04/2024 14:00:00 Final Observation Date Value Abnormality Reference (Units ) Status Glucose, POC 12/04/2024 14:06 83 70-99 (mg/ dL) Final Performing Location [facility] [address] [place] [address]
--- NOTE | 2024-12-30 20:16 | XRay Report ---
EXAM: XR wrist RT 2V CLINICAL HISTORY: postoperative TECHNIQUE: X-ray images of the right wrist were obtained in [place], lateral projections. COMPARISON: No prior studies available for comparison. FINDINGS: Bone Structure: Wrist in a cast degrades the image quality Fracture of the radius and ulne seen with releative good alignment and fixation by plate and screws Grossly intact hardware Joint Spaces: Joint spaces are grossly preserved. Soft Tissues: Soft tissues appear grossly unremarkable. No soft tissue calcifications, or foreign bodies noted. IMPRESSION: 1. Fracture of the radius and ulna seen with relative good alignment with fixation by plate and screws. 2. Grossly intact hardware. Disclaimer: A subtle bone abnormality or fracture may not be readily apparent on X-rays, thus clinical correlation and further imaging including follow-up CT, MRI, or follow-up X-rays are advised as needed. Electronically signed by Mike Newsome 12-30-2024 8:16 PM
[2024-12-30] MEDS: NICOTINE 7 MG/24 HR TDSY TD SCH (20:23)
[2024-12-31 04:55] LABS: Albumin Globulin Ratio 0.7 (0.9-2); Albumin Level 2.8 gm/dl (3.4-5.0); BUN Creatinine Ratio 19.6 (10-20); Bilirubin,Total 0.8 mg/dl (0.2-1.0); Calcium 8.5 mg/dl (8.6-10.3); Creatinine Clr Calc Pharmacy 110.5 ml/min; Globulin 3.8 gm/dl (2.5-4.0); Potassium 4.6 mmol/L (3.5-5.1); Total Protein 6.6 gm/dl (6.0-8.3)
[2024-12-31 04:59] LABS: Hematocrit (blood only) 40.4 % (42.0-52.0); Hemoglobin 13.4 g/dl (14.0-18.0); Mean Corpuscular Hemoglobin 32.3 pg (25.0-34.0); Mean Corpuscular Hgb Conc 33.2 g/dL (32.0-36.0); Mean Corpuscular Volume 97.3 fL (80.0-100.0); Mean Platelet Volume 13.2 fL (9.4-12.4); Platelet Count 77 K/uL (130-400); RDW Coefficient of Variation 14.5 % (11.5-14.5); RDW Standard Deviation 52.4 fL (36.4-46.3); Red Blood Count 4.15 M/uL (4.70-6.10); White Blood Count 7.96 K/ul (4.8-10.8)
[2024-12-31 05:00] LABS: Basophils # (auto) 0.01 K/uL (0.00-0.20); Basophils % (auto) 0.1 %; Eosinophils # (auto) 0.01 K/uL (0.00-0.50); Eosinophils % (auto) 0.1 %; Immature Granulocytes # (auto) 0.03 K/uL (0.01-0.20); Immature Granulocytes % (auto) 0.4 %; Lymphocytes # (auto) 1.01 K/uL (1.20-3.40); Lymphocytes % (auto) 12.7 %; Monocytes # (auto) 0.95 K/uL (0.11-0.59); Monocytes % (auto) 11.9 %; Neutrophils # (auto) 5.95 K/uL (1.40-6.50); Neutrophils % (auto) 74.8 %; RBC Morphology Unremarkable
[2024-12-31] MEDS: traMADol HCL 50 MG TABLET PO PRN (06:24)
[2024-12-31 07:05] VITALS: RESP 16; TEMP 98.4
--- NOTE | 2024-12-31 07:42 | Fluoroscopy Report ---
INTRAOPERATIVE FLUOROSCOPIC IMAGES: CLINICAL HISTORY: Right wrist ORIF. Fluoroscopy time: 37 seconds. Number of fluoroscopic images: Ka,r: 0.7047 mGy: FINDINGS: Fluoroscopy was provided during open reduction and internal fixation of the distal right ra dial fracture with plate and screws. Fracture alignment has markedly improved and is near anatomic. H ardware is intact. Alignment of the distal ulnar fracture has also improved. There are no unexpected radiopaque foreign bodies. IMPRESSION: Fluoroscopy provided during right wrist ORIF. Electronically signed by: Waldo Grimes M.D. 12/31/2024 7:40 AM
[2024-12-31] MEDS: oxyCODONE HCL IR 5 MG TAB (IMMEDIATE RELEASE) PO STA (09:28)
--- NOTE | 2024-12-31 09:43 | Orthopedic Progress Note ---
Date of Service December 31, 2024 Assessment & Plan (1) Open fracture of distal end of radius: (2) Open fracture of distal ulna: (3) Median nerve injury: Plan: (4) Dog bite, hand: Plan Postop day #1 status post ORIF right distal radius and distal ulna fracture. Patient seems to be doing well with no concerns. His pain is improved, and the paresthesias in the right fingers that he was experiencing yesterday has subjectively and objectively improved. Receiving Unasyn every 6 hours inpatient. Postop labs show no leukocytosis. His albumin is low at 2.8. Ordered protein supplementation for him and discussed this with him that he should be drinking a protein shake at least once per day over the next few weeks to promote healing. Expectant management reviewed with the patient. He will keep the splint in place and dry on the right upper extremity for the next 2 weeks. The sling is for comfort. We discussed the importance of elevating and icing to laws off swelling. We discussed working on range of motion of the fingers to prevent stiffness and promote venous return. Nonweightbearing right upper extremity. He was given instructions on wound care management for the left fingers Will take aspirin 81 mg once daily for the next 4 weeks for DVT prophylaxis. Pain control with scheduled Tylenol, diclofenac, and oxycodone. Prescriptions for diclofenac and oxycodone were sent to pharmacy. Should be discharged on p.o. Augmentin for 14 days. 2-week follow-up appointment with Dr. Meehan is scheduled and listed in discharge tab. Patient can likely be discharged later today, but Dr. Meehan would like to see him this afternoon prior to discharge. Admission and Anticipated Discharge Date Admission Date: December 30, 2024 Subjective Patient seen in bed this morning. He reports that his right wrist is sore but the pain is much improved compared to yesterday. The numbness and tingling sensation that he was experiencing in the right fingers has improved. Denies any pain in the left fingers or hand. He denies any fevers, chills, chest pain, or shortness of breath. Physical Exam Constitutional: Resting comfortably sitting upright in bed, in no distress. Cardiovascular: Capillary refill in right fingers about 1-2 seconds. Less than 2 seconds in left fingers Musculoskeletal: Right upper extremity: Sugar-tong splint is in place, fitting well. Fingers with mild soft tissue swelling compared to contralateral. Motor function with thumb extension, initiating thumb opposition to little finger, and resisted finger abduction is intact. Left upper extremity: Dressings in place on the thumb and ring fingers. Clean, dry, intact. No pain with range of motion of the wrist or fingers. No swelling. Neurologic: No sensory deficits to light touch in bilateral fingers Results & Data Vital Signs (Past 12 Hours) Vital Signs Temp Pulse Resp BP Pulse Ox O2 Del Method 12/31/24 07:01 98.4 F 85 16 105/67 94 Room Air 12/31/24 05:00 99.3 F 89 18 117/73 95 Room Air 12/31/24 01:01 98.2 F 84 18 136/76 95 Room Air Laboratory Results 12/30/24 09:32 Urine Culture - Pending Urine,Clean Catch 12/31/24 12/30/24 12/30/24 04:05 18:05 09:32 WBC 7.96 RBC 4.15 L Hgb 13.4 L Hct 40.4 L MCV 97.3 MCH 32.3 MCHC 33.2 RDW Std Deviation 52.4 H RDW Coeff of Surendra 14.5 Plt Count 77 L MPV 13.2 H Immature Gran % (Auto) 0.4 Neut % (Auto) 74.8 Lymph % (Auto) 12.7 Converse % (Auto) 11.9 Eos % (Auto) 0.1 Baso % (Auto) 0.1 Neut # (Auto) 5.95 Lymph # (Auto) 1.01 L Converse # (Auto) 0.95 H Eos # (Auto) 0.01 Baso # (Auto) 0.01 Immature Gran # (Auto) 0.03 RBC Morphology Unremarkable Sodium 136 Potassium 4.6 D Chloride 104 Carbon Dioxide 30 Anion Gap 2 L BUN 10 Creatinine 0.51 L Est Cr Clr Drug Dosing 110.5 eGFR 113.22 BUN/Creatinine Ratio 19.6 Glucose 119 H POC Glucose 155 H Calcium 8.5 L Total Bilirubin 0.8 AST 88 H ALT 60 H Alkaline Phosphatase 108 H Total Protein 6.6 Albumin 2.8 L Globulin 3.8 Albumin/Globulin Ratio 0.7 L Urine Color Brown Urine Appearance Cloudy A Urine pH 6.0 Ur Specific Milroy 1.025 Urine Protein 2+ H Urine Glucose (UA) Negative Urine Ketones Negative Urine Blood 3+ H Urine Nitrite Negative Urine Bilirubin Negative Urine Urobilinogen Negative Ur Leukocyte Esterase Negative Urine RBC >20 H Urine WBC 11-20 H Ur Epithelial Cells 0-2 Urine Bacteria None Seen Ethyl Alcohol mg/dL 12/30/24 09:07 WBC RBC Hgb Hct MCV MCH MCHC RDW Std Deviation RDW Coeff of Surendra Plt Count MPV Immature Gran % (Auto) Neut % (Auto) Lymph % (Auto) [place]verse % (Auto) Eos % (Auto) Baso % (Auto) Neut # (Auto) Lymph # (Auto) Converse # (Auto) Eos # (Auto) Baso # (Auto) Immature Gran # (Auto) RBC Morphology Sodium Potassium Chloride Carbon Dioxide Anion Gap BUN Creatinine Est Cr Clr Drug Dosing eGFR BUN/Creatinine Ratio Glucose POC Glucose Calcium Total Bilirubin AST ALT Alkaline Phosphatase Total Protein Albumin Globulin Albumin/Globulin Ratio Urine Color Urine Appearance Urine pH Ur Specific Mil[place] Urine Protein Urine Glucose (UA) Urine Ketones Urine Blood Urine Nitrite Urine Bilirubin Urine Urobilinogen Ur Leukocyte Esterase Urine RBC Urine WBC Ur Epithelial Cells Urine Bacteria Ethyl Alcohol mg/dL < 10.0 Diagnostic Findings Wrist X-Ray 12/30/24 00:00 INTRAOPERATIVE FLUOROSCOPIC IMAGES: CLINICAL HISTORY: Right wrist ORIF. Fluoroscopy time: 37 seconds. Number of fluoroscopic images: Ka,r: 0.7047 mGy: FINDINGS: Fluoroscopy was provided during open reduction and internal fixation of the distal right radial fracture with plate and screws. Fracture alignment has markedly improved and is near anatomic. Hardware is intact. Alignment of the distal ulnar fracture has also improved. There are no unexpected radiopaque for eign bodies. IMPRESSION: Fluoroscopy provided during right wrist ORIF. Electronically signed by: Waldo Grimes M.D. 12/31/2024 7:40 AM Hand X-Ray 12/30/24 08:08 XR hand RT min 3V routine, XR wrist RT min 3V routine, XR forearm RT 2V HISTORY: 64 years-old Male R wrist deformity, dog bites, fall acute right wrist pain status post fall COMPARISON: Wrist deformity grafts of same day TECHNIQUE: 2 views of the right hand with 2 views of the right forearm and 3 views of the right wrist FINDINGS: HAND: Limited exam secondary to positioning. Multifocal osteoarthritis, moderate within the first carpometacarpal joint. No definite acute fracture or dislocation. WRIST: No acute carpal bone fracture or dislocation. FOREARM: There is an acute open fracture deformity involving the distal radius which demonstrates apex lateral angulation with and volar displacement of 2.5 cm. The radiocarpal articulation is preserved. The distal radius extends through the soft tissues. Additional acute, comminuted and displaced fracture of the distal ulna with fracture fragment displaced over 2 cm the adjacent ulnar tissues. The ulnar styloid is also fractured. There is moderate soft tissue swelling with a considerable amount of subcutaneous emphysema and deep tissue air. IMPRESSION: 1. Acute open fracture deformity of the distal forearm with comminuted, displaced and angulated fractures of the distal radius and ulna. 2. Preserved radiocarpal articulation. 3. No acute carpal or hand fractures identified. 4. Soft tissue swelling with subcutaneous emphysema. ACT 112: Negative or not required by law. The above report was generated using voice recognition software. It may contain grammatical, syntax or spelling errors. Electronically signed by: Dain Knox M.D. 12/30/2024 8:46 AM Hand X-Ray 12/30/24 11:28 XR hand LT min 3V routine CLINICAL HISTORY: L hand fingers dog bites COMPARISON: None FINDINGS: Evaluation of the left fifth finger is mildly compromised given monitoring device. No acute fractures within the left hand are identified. There are no unexpected radiopaque foreign bodies. A few well-corticated ossicles along the ulnar styloid are chronic. 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 IMPRESSION: No acute fracture or dislocation within the left hand. ACT 112: Negative or not required by law. Electronically signed by: Waldo Grimes M.D. 12/30/2024 11:59 AM Wrist X-Ray 12/30/24 17:20 EXAM: XR wrist RT 2V CLINICAL HISTORY: postoperative TECHNIQUE: X-ray images of the right wrist were obtained in [place], lateral projections. COMPARISON: No prior studies available for comparison. FINDINGS: Bone Structure: Wrist in a cast degrades the image quality Fracture of the radius and ulne seen with releative good alignment and fixation by plate and screws Grossly intact hardware Joint Spaces: Joint spaces are grossly preserved. Soft Tissues: Soft tissues appear grossly unremarkable. No soft tissue calcifications, or foreign bodies noted. IMPRESSION: 1. Fracture of the radius and ulna seen with relative good alignment with fixation by plate and screws. 2. Grossly intact hardware. Disclaimer: A subtle bone abnormality or fracture may not be readily apparent on X-rays, thus clinical correlation and further imaging including follow-up CT, MRI, or follow-up X-rays are advised as needed. Electronically signed by Mike Newsome 12-30-2024 8:16 PM
[2024-12-31 11:19] VITALS: BP 115/73; PULSE 91; O2SAT 95
--- NOTE | 2024-12-31 12:41 | Discharge Summary ---
Date of Service December 31, 2024 Admission HPI Per Admitting Provider 64 yo male PMHx COPD, opioid use disorder admitted with complex open fracture of the R wrist after trying to break up a dog fight and being bitten. Was also bitten on left hand without deformity. Is a snf smoker, history of taking 6 Percocet per day but weaned himself off of this. Admits to heavy EtOH use. States pain is reasonably controlled. Initially transfer was recommended but patient declined. Seen by ortho and readied for OR. ED Course: R hand/arm XRs reveal comminuted, displaced, angulated fractures of distal radius and ulna Labs reveal: transaminitis, thrombocytopenia, EtOH negative Tetanus booster given Rec'd Unasyn Admission Exam Per Admitting Provider Constitutional: gaunt, no acute distress HEENT: NCAT, no conjunctival injection CV: regular rhythm, extremities well-perfused, no LE edema Resp: decreased air movement, no significant wheeze, rales GI: nondistended MSK: no gross deformities appreciated Skin: warm, dry, no rash appreciated Neuro: alert, oriented, no focal neurologic deficit appreciated Principal Diagnosis Dog bite, Open wrist fracture Discharge Exam Constitutional: gaunt, no acute distress HEENT: NCAT, no conjunctival injection CV: regular rhythm, extremities well-perfused, no LE edema Resp: decreased air movement, no significant wheeze, rales GI: nondistended MSK: R arm casted, able to move fingers, L hand with dressed lacerations Skin: warm, dry, no rash appreciated Neuro: alert, oriented, no focal neurologic deficit appreciated Discharge Data Allergies Allergy/AdvReac Type Severity Reaction Status Date / Time No Known Allergies Allergy Verified 12/30/24 12:10 Consultations 12/31/24 10:49 Consult Orthopedic Surgery Routine Procedures Performed Operation Date: 12/30/24 11:10 Actual Procedures p Right Distal Radius and distal ulna Fracture Open Reduction Internal Fixation(Right) - Huy Meehan MD s Incision and Drainage Distal Radius, Left Hand Wound Incision and Debridement, Primary Closure(Left) - Huy Meehan MD Ordered Studies 12/30/24 FL wrist RT 2V Routine Hospital Course (1) Dog bite, hand: (2) History of opioid abuse: (3) COPD (chronic obstructive pulmonary disease): (4) Open fracture of distal ulna: (5) Open fracture of distal end of radius: (6) Median nerve injury: (7) Heavy alcohol consumption: (8) Transaminitis: Plan 64 yo male PMHx COPD, opioid use disorder admitted with complex open fracture of the R wrist after trying to break up a dog fight and being bitten. #Dog Bite, Open Fracture of Radius and Ulna To OR for ORIF, likely will need second procedure at tertiary care center w/ hand surgeon Given Unasyn - Augmentin x 4 days Rec'd tetanus booster Pain management as needed #Heavy EtOH Use This is likely the culprit for transaminitis and thrombocytopenia AWSS at risk protocol ordered Trend labs Risk reduction vs EtOH treatment conversation needed prior to dc #Nicotine Use Offer nicotine replacement #COPD Continue Anoro and PRN albuterol FENGI: NPO for surgery, regular diet post-op Code status: full code DVT prophylaxis: SCDs Isolation: none Disposition: med/surg Total Time Total Time Spent Total Time Spent (In Minutes): Reynaldo Lara DO, attending physician, spent 20 minutes myself seeing the patient, reviewing the chart, and documenting today. Discharge Plan Discharge Items Patient Disposition: Home - Self-Care Reason For Visit: DOG BITE, OPEN WRIST FRACTURE Discharge Diagnosis: Dog Bite, Open Wrist Fracture Condition on Discharge: Good Activity: Resume your previous activity Activity Comment: as tolerated Non-emergency contact: Primary Care Provider and Surgeon Call non-emergency contact if: you have any medication questions, your pain is worsening and you have a fever Follow-up/Referrals: Huy Meehan MD [Physician] - 01/14/25 10:15 am PCP,NO [Primary Care Provider] - Diet: Regular Addtl Attending Provider Instructions: You were admitted to the hospital for wrist fracture and lacerations from a dog bite. You were treated with surgery to fix your wrist and antibiotics to prevent infection. You will continue to take antibiotics after discharge - we will send them to your pharmacy. You will need to follow up with your surgeon in order to have your sutures removed and have a new cast put on. They will arrage this appointment for you. A discharge summary will be sent to your primary care physician to ensure continuity of care. Please bring this discharge summary with you to your next office appointment so that your provider can review it at that time. Follow-up appointments: Make a follow-up appointment with your PCP within the next week. It is very important that you follow up with them shortly after discharge from the hospital. Follow up with orthopaedic surgery as scheduled Keep all your follow-up appointments as already scheduled. If you cannot make an appointment, notify your provider. Medications: Your medication list has been reviewed and reconciled upon discharge to ensure accuracy and continuity of care. An updated list of all your medications is included with your hospital discharge paperwork. Please review this list closely, and make note of any changes. We sent a new medication called Augmentin (amoxicillin-clavulanate) to your pharmacy. Take Augmentin (875mg) one tablet twice daily for 4 days. If you have any issues filling these prescriptions, please call [phone] and ask to leave a message for Dr. Tarun Szymanski. Take your medications as instructed; do not skip a dose of your medicines. Make sure all of your doctors know every medicine you are taking (including yste-ytp-havtzkm medicines, vitamins, and supplements). Call your primary care provider before taking any new medicines (including jydz-riz-nplcatl medicines, vitamins, and supplements), because some of these may interact with your current medications, or may make your symptoms worse. Tell your primary care provider if you cannot afford your medications. CONTACT YOUR PRIMARY CARE PROVIDER if you experience any of the following: Fever Discharge from your wounds Difficulty following your treatment plan, or difficulty taking medications CALL 911 OR GO TO THE EMERGENCY DEPARTMENT if you experience any of the follo wing: Sudden, severe abdominal pain or nausea/vomiting Severe chest pain, or chest pain that radiates (moves) to your jaw or arm Sudden, severe shortness of breath or difficulty breathing Thank you for allowing us to participate in your care. Addtl Psych Arnp Provider Instructions: Orthopedic instructions - Nonweightbearing with the right upper extremity - Ok to work on range of motion with fingers on both hands (squeeze ball, finger movements) - Leave cast in place. Keep dry with a trash bag wrapped with tape at the top when showering. - The sling is for comfort, do not need the sling on at all times. - Very important: elevate your arm up on your chest or prop elbow up on pillows with your hand toward the ceiling. - Ice 20 minutes every 1-2 hours - Take aspirin 81 mg once daily for 4 weeks to prevent blood clots - Take tylenol 1000 mg every 8 hours as needed for pain control - Take diclofenac 75 mg twice daily for pain. This is an NSAID so you should not take other NSAIDs like ibuprofen, motrin, advil, Aleve, or naproxen. - Continue outpatient antibiotics per primary team - Your protein levels are low. Please drink 1 protein shake (boost, ensure, etc.) per day over the next 2 weeks to promote healing. - Left hand wound care instructions: Change dressing once daily. Apply bacitracin or triple antibiotic ointment for the first 5 days and keep covered with bandaids. After 5 days, do not need ointment but continue to keep covered with bandaids. It is ok to get these wet in the shower but do not submerge unerwater (pool, dishwater, bathtub, hot tub, morales, etc) - Follow up in [address] Meehan as scheduled. - Call [phone] with any questions or concerns. Pending Studies at Discharge: No Stand-Alone Forms: My [facility], Smoking Cessation Medications and DC Order Prescriptions: New oxycodone 5 mg tablet 5 - 10 mg PO Q4H PRN (Reason: pain) Qty: 18 0RF Rx Instructions: Take 1 tab for pain 1-5 Take 2 tabs for pain 6-10 diclofenac sodium 75 mg tablet,delayed release (DR/EC) 75 mg PO BID 28 Days Qty: 56 1RF amoxicillin-pot clavulanate 875-125 mg tablet 1 tab PO Q12H Qty: 8 0RF Continued albuterol sulfate 90 mcg/actuation HFA aerosol inhaler 1 puff INHALATION DIRECTED Rx Instructions: filled 12/11 35 day supply Anoro Ellipta 62.5-25 mcg/actuation blister with device 1 inh INHALATION DIRECTED Rx Instructions: filled 12/10/24 30 day supply Discharge Orders: Discharge Order (Routine); Ordered 12/31/24 Ordered By: Claire Guerra Admission Data Admit Date/Time: 12/30/24 11:50 Attending Provider: Reynaldo Grover Admit Provider: Tarun Szymanski Primary Care Provider: PCP,NO Other Providers: Huy Meehan Other Interventions: Discharge Summary Assessment (RN) Last Done: 12/31/24 16:01 Supervising Physician Co-Signing Physician Notes ATTESTATION I also saw the patient and confirmed capps portions of the history and exam. I agree with the impression and plan in the resident documentation, and as summarized below. I also discussed the case with the orthopedic team. EXAM 115/73, 91, 16, afebrile Pain controlled Right arm covered with VARUN Left wounds dressed with gauze CV RRR Lungs decreased, prolonged exp phase DATA Labs HgB 13.4 plt 77 glucose 229 AST 88, ALT 60, AP 108 Micro urine culture no growth IMPRESSION & PLAN Right wrist fracture Dog Bites, multiple Tobacco Abuse ETOH Abuse COPD Thrombocytopenia Elevated LFTS History of Opioid dependence Hyperglycemia OK for discharge per orthopedics I discussed need for patient to establish with PCP for follow up for his COPD, elevated LFTs, elevated glucose, and low platelet count He tells me he used to drink alcohol, but has not in the last five years Additional per resident documentation Resident Activity Tracking Resident Involvement: Resident Care Provided Care Provided: Adult Hospital Medicine
[2024-12-31] MEDS: ASPIRIN 81 MG ECTAB PO SCH (13:30)
[2024-12-31] MEDS ORDERED: ASPIRIN 81 MG ECTAB PO SCH (21:00)
--- NOTE | 2025-01-07 09:45 | Coding Query ---
I believe I documented the length of his wounds in my operative report. Thank you CODING QUERY To promote full compliance with coding requirements relating to patient care, provider participation is requested in all cases of welder first class uncertainty. Please assist us with the question(s) below: Coding Question(s): WHAT WAS THE SIZE OF THE REPAIR OF THE WOUND? Physician's Response(s): Thank you Ceci Jefferson Principal Diagnosis: "that condition established after study, to be chiefly responsible for occasioning the admission of the patient to the hospital for care." Co-Existing Principal Diagnosis: "when two or more diagnoses equally meet the criteria for principal diagnosis as determined by the circumstances of admission, diagnostic work up, and/or therapy provided, and the Alphabetic Index, Tabular List, or another coding guideline does not provide sequencing direction, any one of the diagnoses may be sequenced first." "When the physician has documented what appears to be a current diagnosis in the body of the record, but has not included the diagnosis in the final diagnostic statement, the physician should be asked whether the diagnosis should be added." (Source Coding Clinic 2 QTR90. p3-4) JUAQUIN
== END 2024-12-31 17:30 | disposition home or self-care (01) ==
LOC: ED 07:46 → 3W 11:46 → OR 11:46 → SUATTDRO 11:50 → OR 11:53